=== PATIENT | female | born 1985 | race Caucasian/White ===

== ENCOUNTER 2018-08-09 02:28 | Inpatient (IN) | payer BC ==
[2018-08-09] MEDS ORDERED: TERBUTALINE SULFATE 1 MG/ML VIAL IV PRN (02:55)
[2018-08-09] MEDS ORDERED: IBUPROFEN 600 MG TAB PO PRN (02:55)
[2018-08-09] MEDS ORDERED: OXYTOCIN/RINGERS LACTATE 1,000 ML IV PRN (02:55)
[2018-08-09] MEDS ORDERED: EPSOM SALT 454 GM TP PRN (02:55)
[2018-08-09] MEDS ORDERED: MISOPROSTOL 200 MCG TAB PR PRN (02:55)
[2018-08-09] MEDS ORDERED: LIDOCAINE 1% 300 MG/30 ML SDV SC PRN (02:55)
[2018-08-09] MEDS ORDERED: OLIVE OIL 118 ML BTL MISC PRN (02:55)
[2018-08-09] MEDS ORDERED: LR 1,000 ML IV PRN (02:55)
[2018-08-09] MEDS ORDERED: AMMONIA AROMATIC 1 EACH AMP IH ONE (03:02)
[2018-08-09] MEDS ORDERED: LIDOCAINE 1% 300 MG/30 ML SDV ONE (03:02)
[2018-08-09] MEDS ORDERED: OLIVE OIL 118 ML BTL ONE (03:02)
[2018-08-09] MEDS ORDERED: TERBUTALINE SULFATE 1 MG/ML VIAL ONE (03:03)
[2018-08-09] MEDS ORDERED: OXYTOCIN 10 UNIT/ML VIAL ONE (03:03)
[2018-08-09] MEDS ORDERED: MISOPROSTOL 200 MCG TAB ONE (03:03)
[2018-08-09 03:58] LABS: PLATELET COUNT 351 10^3/uL (150-400)
[2018-08-09] MEDS ORDERED: fentaNYL 2MCG/ML/BUP 0.1% RTU 100 ML BAG EP ONE ×2 (04:10→12:11)
[2018-08-09] MEDS ORDERED: PHENYLEPHRINE HCL 100 MCG/ML SYR ONE (04:45)
[2018-08-09] MEDS ORDERED: fentaNYL 100 MCG/2 ML INJ ONE ×2 (05:12→05:30)
--- NOTE | 2018-08-09 05:39 | PREANESOB ---
Obstetric Pre-Anesthesia Info - General Info Proposed Procedure: labor epidural : 2 Para: 0 MI: 08/06/18 Gestational Age: 40 week(s) and 3 day(s) - Labor Status Indications for Labor Analgesia: Pain Control Labor Epidural: Yes Anesthesia Allergies/Adverse Reactions: Allergy/AdvReac Type Severity Reaction Status Date / Time tioconazole Allergy Verified 08/09/18 02:54 [From Monistat 1 (tioconazole)] Visit Medications: Generic Name Dose Route Start Last Admin Trade Name Freq PRN Reason Stop Dose Admin Lactated Ringer's 1,000 mls @ 0 mls/hr 08/09/18 02:55 Lr IV 08/10/18 02:54 PRN PRN SEE PROTOCOL CONDITIONS Protocol Per Protocol Oxytocin/Lactated Ringer's 1,000 mls @ 125 mls/hr 08/09/18 02:55 Pitocin 20 Units/Lr (Premix) IV PRN PRN Post bleeding Ibuprofen 600 mg 08/09/18 02:55 Motrin PO ONCE PRN post , pain Lidocaine HCl 300 mg 08/09/18 02:55 Lidocaine Hcl 1% SC 02/05/19 02:54 ONCE PRN episiotomy Magnesium Sulfate 454 gm 08/09/18 02:55 Epsom Salt TP 02/05/19 02:54 Q1H PRN perineal discomfort Misoprostol 800 - 1,000 mcg 08/09/18 02:55 Cytotec NC ONCE PRN Vaginal Atony/Bleeding [place] Oil 118 ml 08/09/18 02:55 Sweet Oil MISC 02/05/19 02:54 ONCE PRN perineal massage Terbutaline Sulfate 0.25 mg 08/09/18 02:55 Brethine IV 02/05/19 02:54 ONCE PRN Tachysystole Discontinued Medications Generic Name Dose Route Start Last Admin Trade Name Freq PRN Reason Stop Dose Admin Ammonia (Aromatic Spirit) Confirm 08/09/18 03:02 Ammonia Aromatic Administered 08/09/18 03:03 Dose 1 each IH .STK-MED ONE Fentanyl Confirm 08/09/18 05:12 Sublimaze Administered 08/09/18 05:13 Dose 100 mcg .ROUTE .STK-MED ONE Fentanyl Confirm 08/09/18 05:30 Sublimaze Administered 08/09/18 05:31 Dose 100 mcg .ROUTE .STK-MED ONE Fentanyl/Bupivacaine HCl Confirm 08/09/18 04:10 Fentanyl/Bupivacaine/Ns 2 Mcg/Ml 0.1% (Premix Administered 08/09/18 04:11 Dose 100 ml EP .STK-MED ONE Lidocaine HCl Confirm 08/09/18 03:02 Lidocaine Hcl 1% Administered 08/09/18 03:03 Dose 300 mg .ROUTE .STK-MED ONE Misoprostol Confirm 08/09/18 03:03 Cytotec Administered 08/09/18 03:04 Dose 1,000 mcg .ROUTE .STK-MED ONE Ames Oil Confirm 08/09/18 03:02 Sweet Oil Administered 08/09/18 03:03 Dose 118 ml .ROUTE .STK-MED ONE Oxytocin Confirm 08/09/18 03:03 Pitocin Administered 08/09/18 03:04 Dose 40 unit .ROUTE .STK-MED ONE Phenylephrine HCl Confirm 08/09/18 04:45 Neosynephrine Administered 08/09/18 04:46 Dose 1,000 mcg .ROUTE .STK-MED ONE Terbutaline Sulfate Confirm 08/09/18 03:03 Brethine Administered 08/09/18 03:04 Dose 1 mg .ROUTE .STK-MED ONE - Vital Signs Height/Weight (Nursing): Height 175.26 cm Weight 82.554 kg Labs: 08/09/18 03:45 Patient ABO/Rh O POSITIVE 08/09/18 03:45
[2018-08-09] MEDS ORDERED: LR 500 ML IV SCH ×2 (06:00→14:30)
--- NOTE | 2018-08-09 07:02 | OBPROG ---
Labor Progress Note Assessment/Plan: Assessment: Plan: Subjective/Intrapartum Course: 08/09/18 06:59 i was called in to assess heart rate tracing. baby has had periods of decreased variability and lates but has overall been reassuring. she recieved and epidural that helped with pain but she weas still having cervical pain. epidual was bolkused and pain has been well controlled since then. SVe 6/80/- 2. she had a decel right after exam with quick return to baseline so an fecg was placed to assist in monitoring. status has been reassuring since then. Objective: 08/09/18 03:45 Patient ABO/Rh O POSITIVE 08/09/18 03:45 - SVE Dilation (cm): 6 Effacement (%): 90 Station: 0 Membranes: SROM Amniotic Fluid Color: Clear - Contraction Pattern Assessment Current Contraction Pattern: Irregular - FHR Assessment Patricia FHR Pattern Variability: Moderate FHR Category: 1 - Procedures Non-surgical Procedures: FSE - AP Antepartum Course: 08/09/18 07:03 hx anxiety and depression. had been on zoloft, lamictal and klonipin prior to . currently on lamictal. hx breastg reduction does not plan on breast feeding. 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 Oxytocin Orders Assessment - Pre-Induction/Augmentation Assessment Gestational Age: 40 week(s) and 3 day(s) ICD10 Worksheet Patient Problems: Problems Problem Status Onset (spontaneous vaginal delivery) Acute
--- NOTE | 2018-08-09 07:31 | GHP ---
DATE OF ADMISSION: 08/09/2018 ADMISSION DIAGNOSIS: Intrauterine at 40-3/7 weeks gestation, spontaneous rupture of membra adriana, active labor. HISTORY OF PRESENT ILLNESS: The patient is a 33-year-old, 2, para 0-0-1-0 who was 40-3/7 wee ma gestation. Her estimated date of confinement is 08/06/2018, dated by last menstrual period of , consistent with an 8-week ultrasound. Patient has had spontaneous rupture of membranes. So lena changed admission to 40 and 3/7 weeks gestation. Patient has had spontaneous rupture of membr anes at 0040 and contractions started shortly thereafter. She arrived to Labor and Delivery and was 1-2 cm and having pain, so she requested and received an epidural, which has provided adequate pain r elief. Patient has received care at [facility] throughout her whole . S he was seen in the 1st trimester. When she began , she was on Klonopin, Zoloft, and Lamicta l. She has discontinued the Klonopin and Zoloft and has continued on the Lamictal 300 mg a day. She does not plan to breast feed due to her history of anxiety and depression. Patient's remainder of p regnancy has been uncomplicated. MEDICAL HISTORY: Significant for anxiety and depression for which she has been managed pre- on Zoloft, Lamictal, and Klonopin. Her moods have been stable on Lamictal and . She has a history of cervical dysplasia for which she had a cryosurgery in 2017. She also has chronic pelvic pain. MEDICATIONS: vitamins, folate, Lamictal 300 mg. SURGICAL HISTORY: [place] teeth extraction, breast reduction, arm fracture. ALLERGIES: Monistat. SOCIAL HISTORY: Patient is . She denies tobacco or drug use when not . She drinks 1 -2 alcoholic beverages a day. She was not drinking in . FAMILY MEDICAL HISTORY: Noncontributory. SENIOR TECHNICAL MANAGER HISTORY: Menarche at age 15. Periods every 30-31 days, lasting 5 days. She is a 2, para 0-0-1-0. In May 2016, she had a voluntary termination of . Current has bee n uncomplicated. Patient has a history of cervical dysplasia per records. Patient had WILLARD 3 in 2017 and had cryosurgery of her cervix. She has a history of HPV. She has no history of any other sexua lly transmitted diseases. REVIEW OF SYSTEMS: Ten-point review of systems is negative with the above-mentioned pertinent positi ves. Positive movement. Positive loss of fluid. No vaginal bleeding. Painful contractions u ntil she got her epidural. She denies any headache or changes in vision. PHYSICAL EXAMINATION: VITAL SIGNS: Patient's vital signs are stable. GENERAL APPEARANCE: Alert an d oriented x3. PSYCH: Appropriate affect. MUSCULOSKELETAL: Grossly intact. NEURO: Grossly intac t. HEART: Rate is regular regular. LUNGS: Clear to auscultation bilaterally. ABDOMEN: Gravid, n ondistended, nontender. EXTREMITIES: Reveal no calf tenderness or edema. PELVIC: Her cervix is 5- 6 cm dilated, 80% effaced, and at 0 station. heart tracing on arrival initially had periods of flats and lates but has been reassuring. Bab y is in the vertex presentation and she is having contractions every 3-6 minutes. Patient's labs: Blood type O positive, antibody screen negative, rubella nonimmune, GBS negative, HBsAg negat eliel, HIV negative, her 50 g glucose was 95. ASSESSMENT AND PLAN: 1. A 33-year-old, 2, para 0-0-1-0, who is 40-3/7 weeks gestation in active labor after spont aneous rupture of membranes. She has received an epidural and will manage expectantly. 2. Anxiety and depression. Mood stable on Lamictal. This will be continued . Patient do es not plan to breast feed. /[id number]/MODL
--- NOTE | 2018-08-09 08:10 | OBPROG ---
Labor Progress Note Assessment/Plan: Assessment: IUP at 40w3d, SROM at 00:40, SOOC GBS - O pos, rub NI anxiety/depression - on Lamictal and plans to restart Klonipin pp not planning to BF Plan: Now with right sided lip, ctxn pattern not adeq but cervical change will reassess at 9a, if no change will add pitocin 08/09/18 07:44 Subjective/Intrapartum Course: 08/09/18 06:59 i was called in to assess heart rate tracing. baby has had periods of decreased variability and lates but has overall been reassuring. she recieved and epidural that helped with pain but she weas still having cervical pain. epidual was bolkused and pain has been well controlled since then. SVe /- 2. she had a decel right after exam with quick return to baseline so an fecg was placed to assist in monitoring. status has been reassuring since then. 08/09/18 08:09 Pt got good relief with bolus but cervical pain returning. has been resting. occas lightheaded with low b/p after CESARIO. emesis once with pain prior to CESARIO. recent check with right sided lip Objective: 08/09/18 03:45 Patient ABO/Rh O POSITIVE 08/09/18 03:45 - SVE Dilation (cm): 9 Effacement (%): 90 Station: 0 Membranes: SROM Amniotic Fluid Color: Clear - Contraction Pattern Assessment Current Contraction Pattern: Irregular (q 5-7 min) - FHR Assessment Patricia FHR (bpm): 140 FHR Pattern Variability: Minimal FHR Category: 2 (current sleep cycle, minimal BTBV but recent mod variability, no recent decels) - Procedures Non-surgical Procedures: FSE - AP Antepartum Course: 08/09/18 07:03 hx anxiety and depression. had been on zoloft, lamictal and klonipin prior to . currently on lamictal. hx breastg reduction does not plan on breast feeding. 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 Oxytocin Orders Assessment - Pre-Induction/Augmentation Assessment Indication: protracted contractions Presentation: Vertex Gestational Age: 40 week(s) and 3 day(s) Estimated Weight: 2501-3400g Membrane Status: Ruptured Current Sterile Vaginal Exam (SVE): /0 Current Contraction Pattern: Irregular (q 5-7 min but previously making change, if no continued change, begin pitocin) - Heart Rate Pattern Patricia FHR Baseline (bpm): 140 FHR Category: 2 FHR Pattern Variability: Minimal - Moya's Score Dilation: 5-6cm Effacement: 80+ Station: -1,0 Cervix: Medium Cervix Position: Anterior Moya Score Total: 11 - Induction/Augmentation Consent Risks/Benefits of Procedure Reviewed/Pt Agrees to Proceed: Yes ICD10 Worksheet Patient Problems: Problems Problem Status Onset Normal labor Acute
[2018-08-09] MEDS ORDERED: LR 500 ML IV PRN (08:15)
[2018-08-09] MEDS ORDERED: OXYTOCIN/RINGERS LACTATE 500 ML IV SCH (08:30)
[2018-08-09] MEDS ORDERED: lamoTRIgine 100 MG TAB PO SCH (09:00)
--- NOTE | 2018-08-09 09:18 | OBPROG ---
Labor Progress Note Assessment/Plan: Assessment: IUP at 40w3d, SROM at 00:40, SOOC GBS - O pos, rub NI anxiety/depression - on Lamictal and plans to restart Klonipin pp not planning to BF Plan: Now with right sided lip, ctxn pattern not adeq and minimal cervical change will add pitocin 08/09/18 07:44 08/09/18 09:15 Subjective/Intrapartum Course: 08/09/18 06:59 i was called in to assess heart rate tracing. baby has had periods of decreased variability and lates but has overall been reassuring. she recieved and epidural that helped with pain but she weas still having cervical pain. epidual was bolkused and pain has been well controlled since then. SVe 80/- 2. she had a decel right after exam with quick return to baseline so an fecg was placed to assist in monitoring. status has been reassuring since then. 08/09/18 08:09 Pt got good relief with bolus but cervical pain returning. has been resting. occas lightheaded with low b/p after CESARIO. emesis once with pain prior to CESARIO. recent check /0 with right sided lip 08/09/18 09:16 Pt aware of more pressure. occas light headedness. bp has been 90-110s/50-70s. cx minimal change and disc pitocin - pt agrees Objective: 08/09/18 03:45 Patient ABO/Rh O POSITIVE 08/09/18 03:45 - SVE Dilation (cm): 9 Effacement (%): 100 Station: 0 Membranes: SROM Amniotic Fluid Color: Clear - Contraction Pattern Assessment Current Contraction Pattern: Irregular (q 4-6 min) - FHR Assessment Patricia FHR (bpm): 140 FHR Pattern Variability: Moderate FHR Category: 2 (occas small variables and episodes of less variability) - Procedures Non-surgical Procedures: FSE - AP Antepartum Course: 08/09/18 07:03 hx anxiety and depression. had been on zoloft, lamictal and klonipin prior to . currently on lamictal. hx breastg reduction does not plan on breast feeding. 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 - Physical Exam Estimated Weight: 2501-3400g Oxytocin Orders Assessment - Pre-Induction/Augmentation Assessment Presentation: Vertex Gestational Age: 40 week(s) and 3 day(s) Estimated Weight: 2501-3400g ICD10 Worksheet Patient Problems: Problems Problem Status Onset Normal labor Acute
--- NOTE | 2018-08-09 13:40 | OBDEL ---
Info Type: Vaginal Presentation at Delivery: Vertex L&D Analgesia/Anesthesia Type: Epidural GBS+: No Intrapartum Medications: Generic Name Dose Route Start Last Admin Trade Name Freq PRN Reason Stop Dose Admin Oxytocin/Lactated Ringer's 500 mls @ 0 mls/hr 08/09/18 08:30 08/09/18 09:29 Pitocin 30 Units/Lr (Premix) IV 02/05/19 08:29 500 mls CONT SAL Administration Protocol Per Protocol Discontinued Medications Generic Name Dose Route Start Last Admin Trade Name Freq PRN Reason Stop Dose Admin Lamotrigine 300 mg 08/09/18 09:00 08/09/18 08:19 Lamictal PO 02/05/19 08:59 300 mg DAILY SAL Administration - Hospital Course Intrapartum: 08/09/18 06:59 i was called in to assess heart rate tracing. baby has had periods of decreased variability and lates but has overall been reassuring. she recieved and epidural that helped with pain but she weas still having cervical pain. epidual was bolkused and pain has been well controlled since then. SVe 6/80/- 2. she had a decel right after exam with quick return to baseline so an fecg was placed to assist in monitoring. status has been reassuring since then. 08/09/18 08:09 Pt got good relief with bolus but cervical pain returning. has been resting. occas lightheaded with low b/p after CESARIO. emesis once with pain prior to CESARIO. recent check 9/90/0 with right sided lip 08/09/18 09:16 Pt aware of more pressure. occas light headedness. bp has been 90-110s/50-70s. cx minimal change and disc pitocin - pt agrees Indications for Delivery: Spontaneous Labor, SROM Vaginal Delivery - Delivery Provider Delivery Physician/CNM: Pam Galdamez - Labor and Delivery Onset of Contractions Date: 08/09/18 Onset of Contractions Time: 00:40 Onset of Contractions Type: Augmented Rupture of Membranes Date: 08/09/18 Rupture of Membranes Time: 00:40 Rupture of Membranes Type: Spontaneous Amniotic Fluid Color: Clear Dilation Complete Date: 08/09/18 Dilation Complete Time: 11:40 Placenta Delivery Date: 08/09/18 Placenta Delivery Time: 13:18 Total Hours of Labor: 12 Non-surgical Procedures: FSE Laceration: 1st Degree Repair: Other (Specify) (none) Vaginal Sponge Count Correct: Yes Vaginal Needle Count Correct: Yes Vaginal Sweep Performed: Yes EBL: 250 Delivery Events: None Delivery Comment: complete at 11:40, did trial of pushing but little effect and +1 station and stopped after about 15 min, restarted 12:53 - less than 10 min pushing - Medications Labor Augmentation/Induction Methods Used: Pitocin (up to 10 mu/min pit) Labor Augmentation/Induction Indication: Inadequate Ctx Strength (frequency) Data MI: 08/06/18 Gestational Age: 40 week(s) and 3 day(s) Patricia Delivery Date: 08/09/18 Delivery Time: 13:07 Sex of Infant: Male Score (1 Min): 8 Score (5 Min): 9 ICD10 Worksheet Patient Problems: Problems Problem Status Onset (spontaneous vaginal delivery) Acute
[2018-08-09] MEDS: IBUPROFEN 600 MG TAB PO SCH ×2 (13:58→19:52)
[2018-08-09] MEDS ORDERED: PHENYLEPHRINE HCL 100 MCG/ML SYR IVP PRN (14:16)
[2018-08-09] MEDS ORDERED: ONDANSETRON 4 MG/2 ML VIAL IVP PRN (14:16)
[2018-08-09] MEDS ORDERED: fentaNYL 2MCG/ML/BUP 0.1% RTU 100 ML EP SCH (14:30)
[2018-08-09] MEDS: ACETAMINOPHEN 325 MG TAB PO SCH (15:55)
[2018-08-09] MEDS: clonazePAM 0.5 MG TAB PO SCH (22:40)
[2018-08-10] MEDS: IBUPROFEN 600 MG TAB PO SCH ×5 (02:55→21:03)
[2018-08-10] MEDS: ACETAMINOPHEN 325 MG TAB PO SCH ×4 (03:42→21:04)
--- NOTE | 2018-08-10 08:48 | PDFACE2FAC ---
Face to Face Encounter 1. I certify that this patient is under my care and that I, or a nurse practitioner or physician's assistant in nursing working with me, had a [id number] encounter that meets the physician [id number] encounter requirements with this patient on 08/10/18. 2. I certify that based on my findings, the following services are medically necessary home health services: [X Nursing] [X Physical Therapy] [X Speech-Language Pathology] 3. The medical condition and clinical findings that support the need for specialized skills, knowledge and judgement of the above services are: [] 4. I certify this patient is homebound* because [the patient's condition restricts their ability to leave their home except with the assistance of another individual or the aid of a supportive device.] I certify that this patient is confined to his/her home and needs intermittent retirement care, physical and/or speech therapy. This patient is under my care and I have authorized home health services. * Homebound is defined by Medicare as follows: absences from home require considerable and tacking effort and or for medical reasons or spiritism services or are infrequent or of short duration when for other reasons*.
[2018-08-10] MEDS: lamoTRIgine 100 MG TAB PO SCH (09:25)
[2018-08-10] MEDS: clonazePAM 0.5 MG TAB PO SCH ×2 (09:39→21:03)
--- NOTE | 2018-08-10 09:50 | POSTANESTH ---
Post Anesthetic Evaluation Cardiovascular Status: Normal, Stable, Similar to Pre-Op Cond Respiratory Status: Normal, Stable, Similar to Pre-op Cond. Level of Consciousness/Mental Status: Can Participate in Eval Pain Control: Adequate, Prn Tx Ordered Nausea/Vomiting Control: Adequate, Prn Tx Ordered Complications Possibly Related to Anesthesia: None Noted Notes: Patient pleased with epidural. Epidural discontinued after delivery. Tip intact.
--- NOTE | 2018-08-10 17:11 | OBPP ---
Progress Note Assessment/Plan: Delayed entry -pt seen around 1400 Assessment: 33 yo G2 now P1, PPD #1 s/p , doing well Not - choice made during care and in conjunction with psychiatrist Plan: Continue routine cares. Avoid breast stimulation / continue with snug fitting bras to decrease . Anticipate dc home tomorrow. Luci Sawyer MD, FACOG [facility] 08/10/18 19:16 Subjective/ Course: 08/10/18 19:47 Doing well. Ambulating and voiding without difficulty. Wearing triple snug bras so as not to stimulate . Uterine cramping and vulvar pain well controlled with po ibu and Tylenol. Objective: 08/09/18 03:45 Patient ABO/Rh O POSITIVE 08/09/18 03:45 Temp Pulse Resp BP Pulse Ox 36.3 C 82 16 124/83 H 97 08/10/18 08:00 08/10/18 08:00 08/10/18 08:00 08/10/18 08:00 08/10/18 08:00 gen - pleasant, ambulating with normal gait, NAD, AOx3 CV - RRR chest - CTAB abd - fundus firm at u-2, + BS ext - trace edema, no calf tenderness Uterine Position/Fundal Height: Umbilicus -2 Uterine Tone: Firm
[2018-08-11] MEDS: IBUPROFEN 600 MG TAB PO SCH ×2 (03:01→08:38)
[2018-08-11] MEDS: ACETAMINOPHEN 325 MG TAB PO SCH ×2 (03:11→14:30)
[2018-08-11 07:52] VITALS: BP 122/84
[2018-08-11] MEDS: lamoTRIgine 100 MG TAB PO SCH (09:06)
[2018-08-11] MEDS: clonazePAM 0.5 MG TAB PO SCH (09:06)
[2018-08-11] MEDS ORDERED: MEASLES,MUMPS&RUBELLA VACC/PF 0.5 ML VIAL SC ONE (10:01)
--- NOTE | 2018-08-11 11:53 | OBPP ---
Progress Note Assessment/Plan: Assessment: PPD2 s/p - doing great, ready for home. Hct 40, no need for iron. Continuing Lamictral and Klonopin PRN - she has scripts for these. Will have office reach out on Monday for PP mood check in week 1. Rh pos, Rubella NON-immune, MMR ordered for prior to dc. Not BF due to psych meds. JM Subjective/ Course: 08/10/18 19:47 Doing well. Ambulating and voiding without difficulty. Wearing triple snug bras so as not to stimulate . Uterine cramping and vulvar pain well controlled with po ibu and Tylenol. 08/11/18 11:50 Doing great - ready for home. Will be following up with her psych providers, but open to speaking to ours as well. Objective: 08/09/18 03:45 Patient ABO/Rh O POSITIVE 08/09/18 03:45 Temp Pulse Resp BP Pulse Ox 36.0 C 74 16 122/84 H 95 08/11/18 07:49 08/11/18 07:49 08/11/18 07:49 08/11/18 07:49 08/11/18 07:49 Uterine Position/Fundal Height: At Umbilicus Uterine Tone: Firm
--- NOTE | 2018-08-11 11:54 | OBGCSDC ---
General Delivery Information - General Info : 2 Para: 1 Abortions: 1 Type: Vaginal L&D Analgesia/Anesthesia Type: Epidural Admission Date: 08/09/18 Labs: Patient ABO/Rh O POSITIVE 08/09/18 03:45 Hct 40.3 % (38.0-47.0) 08/09/18 03:45 - Hospital Course Antepartum: 08/09/18 07:03 hx anxiety and depression. had been on zoloft, lamictal and klonipin prior to . currently on lamictal. hx breastg reduction does not plan on breast feeding. 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 Intrapartum: 08/09/18 06:59 i was called in to assess heart rate tracing. baby has had periods of decreased variability and lates but has overall been reassuring. she recieved and epidural that helped with pain but she weas still having cervical pain. epidual was bolkused and pain has been well controlled since then. SVe 6/80/- 2. she had a decel right after exam with quick return to baseline so an fecg was placed to assist in monitoring. status has been reassuring since then. : 08/10/18 19:47 Doing well. Ambulating and voiding without difficulty. Wearing triple snug bras so as not to stimulate . Uterine cramping and vulvar pain well controlled with po ibu and Tylenol. 08/11/18 11:50 Doing great - ready for home. Will be following up with her psych providers, but open to speaking to ours as well. Vaginal - Delivery Provider Delivery Physician/CNM: Pam Galdamez - Diagnosis Labor: Augmented Rupture of Membranes Type: Spontaneous Amniotic Fluid Color: Clear Laceration: 1st Degree Repair: Other (Specify) (none) Delivery Events: None - Procedures Non-surgical Procedures: FSE - Delivery Non-surgical Procedures: FSE Data MI: 08/06/18 Gestational Age: 40 week(s) and 5 day(s) Patricia Delivery Date: 08/09/18 Delivery Time: 13:07 Sex of : Male [place] Weight (gm): 4040 g Score (1 Min): 8 Score (5 Min): 9 Discharge Information - Discharge Information Condition: Good Instruction/Follow Up: See Instruction Sheet, One Week (Mood check one week and PRN, Routine 6 wk PP), Six Weeks
== END 2018-08-11 12:30 | disposition home or self-care (01) | DRG 807 ==
LOC: FLD 02:28 → FOB 15:34
PROVIDERS: ADMIT Obstetrics & Gynecology; ATTEND Obstetrics & Gynecology
PROC: 10E0XZZ Delivery of Products of Conception, External Approach (ICD-10-PCS; principal; 2018-08-09)
DX: O99.344 Other mental disorders complicating childbirth (principal); Z37.0 Single live birth; Z3A.40 40 weeks gestation of pregnancy; F32.9 Major depressive disorder, single episode, unspecified; F41.8 Other specified anxiety disorders; O70.0 First degree perineal laceration during delivery
CPT/HCPCS: J2370; J2590; J3010; J3105